=== PATIENT | male | born 1990 | race Caucasian/White ===

== ENCOUNTER 2021-12-11 22:06 | Emergency (ER) | payer SELFPAY ==
[2021-12-11] MEDS ORDERED: NA CHLORIDE 0.9% 1,000 ML ONE (22:29)
[2021-12-11] MEDS ORDERED: DIPHENHYDRAMINE 50 MG/ML VIAL ONE (22:29)
[2021-12-11] MEDS ORDERED: METHYLPREDNISOLONE 125 MG INJ ONE (22:29)
[2021-12-11] MEDS ORDERED: FAMOTIDINE 20 MG/2 ML VIAL IV ONE (22:30)
--- NOTE | 2021-12-11 23:36 | ER ---
Nurse's Notes [facility] Name: Lake Condon Age: 31 yrs Sex: Male : 1990 Arrival Date: 12/11/2021 Time: 22:07 Bed 12 Private MD: Diagnosis: Allergy to peanuts Presentation: 12/11 22:23 Chief complaint: Patient states: he is allergic to peanuts and was exposed about 30 bb minutes ago at [employer] does not have his epi pen and his throat is feeling weird and he is flushed. Coronavirus screen: At this time, the client does not indicate any symptoms associated with coronavirus-19. Ebola Screen: No symptoms or risks identified at this time. Onset: The symptoms/episode began/occurred suddenly. Anaphylaxis evaluation, pt is flushed. Initial Sepsis Screen: Does the patient meet any 2 criteria? No. Patient's initial sepsis screen is negative. Does the patient have a suspected source of infection? No. Patient's initial sepsis screen is negative. Risk Assessment: Do you want to hurt yourself or someone else? Patient reports no desire to harm self or others. Onset of symptoms was December 11, 2021. 22:23 Method Of Arrival: Ambulatory bb 22:23 Acuity: EARNEST 2 bb Triage Assessment: 23:45 General: Appears in no apparent distress. Behavior is cooperative, anxious. sf1 Historical: - Allergies: 22:25 peanuts; bb 22:25 Septra; bb - Home Meds: 22:25 Suboxone sublingual [Active]; bb - PMHx: 22:25 None; bb - PSHx: 22:25 addenoids; bb - Immunization history:: Adult Immunizations up to date, Pfizer x 3. - Social history:: Smoking status: Reported history of juuling and/or vaping. Screenin:44 Abuse screen: Denies threats or abuse. Nutritional screening: No deficits noted. sf1 Tuberculosis screening: No symptoms or risk factors identified. Fall Risk None identified. Assessment: 23:44 Pain: Denies pain. Respiratory: Airway is patent Respiratory effort is even, unlabored, sf1 Breath sounds are clear bilaterally. Vital Signs: 22:23 BP 136 / 104; Pulse 84; Resp 16 S; Temp 98.8(O); Pulse Ox 96% on R/A; Weight 97.52 kg bb (R); Height 6 ft. 2 in. (187.96 cm) (R); Pain 0/10; 22:23 Body Mass Index 27.60 (97.52 kg, 187.96 cm) bb ED Course: 22:07 Patient arrived in ED. [id number] 22:15 Khloe Campos F[facility]-C is [facility]. kb 22:15 Tapan Jarrett MD is Attending Physician. kb 22:18 Alejandrina Smith RN is Primary Nurse. sf1 22:25 Triage completed. bb 22:25 Arm band placed on Patient placed in an exam room, on a stretcher, on pulse oximetry. bb 22:46 Inserted saline lock: 20 gauge in right antecubital area, using aseptic technique. sf1 23:44 Patient has correct armband on for positive identification. sf1 23:44 No provider procedures requiring assistance completed. IV discontinued, intact, sf1 bleeding controlled, No redness/swelling at site. Pressure dressing applied. Administered Medications: 22:40 Drug: NS 0.9% 1000 ml Route: IV; Rate: 1000 ml; Site: right antecubital; sf1 22:40 Drug: SOLU-Medrol (methylPrednisoLONE) 125 mg Route: IVP; Site: right antecubital; sf1 22:42 Drug: Pepcid (famotidine) 20 mg Route: IVP; Site: right antecubital; sf1 22:46 Drug: Benadryl (diphenhydrAMINE) 12.5 mg Route: IVP; Site: right antecubital; sf1 Outcome: 23:36 Discharge ordered by . kb 23:44 Discharged to home ambulatory. sf1 23:44 Condition: good 23:44 Discharge instructions given to patient, Instructed on discharge instructions, follow up and referral plans. Demonstrated understanding of instructions, follow-up care, medications, Prescriptions given X 2. 23:45 Patient left the ED. sf1 Signatures: Khloe Campos FNP-C FNP-Ckb Ballard, Brenda, RN RN bb Leilani Pereira jj6 Alejandrina Smith RN RN sf1
--- NOTE | 2021-12-11 23:36 | EDPHYS ---
Physician Documentation [facility] Name: Lake Condon Age: 31 yrs Sex: Male : 1990 Arrival Date: 12/11/2021 Time: 22:07 Bed 12 Private MD: ED Physician Tapan Jarrett HPI: 12/11 23:25 This 31 yrs old Male presents to ER via Ambulatory with complaints of Allergic Reaction.kb 23:25 The patient presents with tightness in chest and throat. Onset: The symptoms/episode kb began/occurred 1 hour(s) ago. Associated signs and symptoms: Pertinent positives: tightness with breathing. Possible causes: nuts. At home the patient or guardian has treated the symptoms with Benadryl. Severity of symptoms: At their worst the symptoms were mild in the emergency department the symptoms are unchanged. The patient has not experienced similar symptoms in the past. The patient has not recently seen a physician. Pt reports he ate peanuts and is allergic so he took some benadryl and came in. Reports tightness in chest with inspiration and tightness in throat. . Historical: - Allergies: 22:25 peanuts; bb 22:25 Septra; bb - Home Meds: 22:25 Suboxone sublingual [Active]; bb - PMHx: 22:25 None; bb - PSHx: 22:25 addenoids; bb - Immunization history:: Adult Immunizations up to date, Pfizer x 3. - Social history:: Smoking status: Reported history of juuling and/or vaping. ROS: 23:24 Constitutional: Negative for fever, chills, and weight loss. kb 23:24 Respiratory: Positive for tightness with inspiration. 23:24 All other systems are negative. Exam: 23:23 Constitutional: This is a well developed, well nourished patient who is awake, alert, kb and in no acute distress. Head/Face: Normocephalic, atraumatic. ENT: Moist Mucous membranes Cardiovascular: Regular rate and rhythm with a normal S1 and S2. No gallops, murmurs, or rubs. No pulse deficits. Respiratory: Respirations even and unlabored. No increased work of breathing. Talking in full sentences Skin: Warm, dry with normal turgor. Normal color. MS/ Extremity: Pulses equal, no cyanosis. Neurovascular intact. Full, normal range of motion. Neuro: Awake and alert, GCS 15, oriented to person, place, time, and situation. Moves all extremities. Normal gait. Psych: Awake, alert, with orientation to person, place and time. Behavior, mood, and affect are within normal limits. Vital Signs: 22:23 BP 136 / 104; Pulse 84; Resp 16 S; Temp 98.8(O); Pulse Ox 96% on R/A; Weight 97.52 kg bb (R); Height 6 ft. 2 in. (187.96 cm) (R); Pain 0/10; 22:23 Body Mass Index 27.60 (97.52 kg, 187.96 cm) bb MDM: 22:18 Patient medically screened. kb 23:23 Data reviewed: vital signs, nurses notes. Data interpreted: Pulse oximetry: on room air kb is 96 %. Interpretation: normal. 23:24 Counseling: I had a detailed discussion with the patient and/or guardian regarding: the kb historical points, exam findings, and any diagnostic results supporting the discharge/admit diagnosis, the need for outpatient follow up, a family practitioner, to return to the emergency department if symptoms worsen or persist or if there are any questions or concerns that arise at home. Response to treatment: the patient's symptoms have resolved after treatment. 12/11 22:26 Order name: IV Start; Complete Time: 22:46 kb Administered Medications: 22:40 Drug: NS 0.9% 1000 ml Route: IV; Rate: 1000 ml; Site: right antecubital; sf1 22:40 Drug: SOLU-Medrol (methylPrednisoLONE) 125 mg Route: IVP; Site: right antecubital; sf1 22:42 Drug: Pepcid (famotidine) 20 mg Route: IVP; Site: right antecubital; sf1 22:46 Drug: Benadryl (diphenhydrAMINE) 12.5 mg Route: IVP; Site: right antecubital; sf1 Disposition: 12/12 00:13 Co-signature as Attending Physician, Tapan Jarrett MD I agree with the assessment and kdr plan of care. Disposition Summary: 12/11/21 23:36 Discharge Ordered Location: Home kb Condition: Stable kb Diagnosis - Allergy to peanuts kb Followup: kb - With: Emergency Department - When: As needed - Reason: Worsening of condition Followup: kb - With: Private Physician - When: 2 - 3 days - Reason: Recheck today's complaints, Continuance of care, Re-evaluation by your physician Discharge Instructions: - Discharge Summary Sheet kb - Food Allergy, [id number] kb Forms: - Medication Reconciliation Form kb - Thank You Letter kb - Antibiotic Education kb - Prescription Opioid Use kb Prescriptions: - Pepcid 20 mg Oral Tablet - take 1 tablet by ORAL route every 12 hours for 5 days; 10 tablet; Refills: 0, kb Product Selection Permitted - Prednisone 20 mg Oral Tablet - take 1 tablet by ORAL route once daily for 5 days; 5 tablet; Refills: 0, kb Product Selection Permitted Signatures: Khloe Campos, CARLITOSC INEZ-Tapan Patino MD MD kdr Ballard, Brenda, RN RN bb Alejandrina Smith RN RN sf1
[2021-12-11 23:56] VITALS: BP 136/104; TEMP 98.8; O2SAT 96
== END 2021-12-11 23:45 | disposition home or self-care (01) ==
LOC: ER 22:06
DX: R07.89 Other chest pain (principal); Z91.010 Allergy to peanuts; Z88.8 Allergy status to other drugs, medicaments and biological substances
CPT/HCPCS: 96374; 96375; 99284; J1200; J2930; J7030